=== PATIENT | female | born 1975 | race Caucasian/White ===

== ENCOUNTER 2022-05-12 20:02 | Emergency (ER) | payer OTHER ==
[~2022-05-12] VITALS: Ht 154.9 cm; Wt 108.2 kg
[~2022-05-12 20:02] MED LIST: CIPR-278 PO
[2022-05-12] MEDS ORDERED: CHOL25TA4 PO (20:14)
[2022-05-12] MEDS ORDERED: LEVO112T4 PO (20:14)
[2022-05-12] MEDS ORDERED: KETOROLAC TROMETHAMINE 10 MG TABLET PO ONE (20:45)
[2022-05-12 20:47] VITALS: BP 148/90
[2022-05-12] MEDS ORDERED: GABA-1181 PO (21:24)
== END 2022-05-12 21:44 | disposition home or self-care (01) ==
LOC: EMS 20:10
DX: M17.11 Unilateral primary osteoarthritis, right knee (principal); Z86.39 Personal history of other endocrine, nutritional and metabolic disease; Z98.890 Other specified postprocedural states
CPT/HCPCS: 99283